=== PATIENT | female | born 1950 | race Caucasian/White ===

== ENCOUNTER 2017-01-22 12:15 | Emergency (ER) | payer OTHER ==
[~2017-01-22] VITALS: Ht 157.5 cm; Wt 71.4 kg
[~2017-01-22 12:15] MED LIST: SYMBICORT1 AE1 INH
[2017-01-22 13:14] LABS: CALCIUM 8.9 mg/dL (8.5-10.1); CHLORIDE SERUM 104 mmol/L (98-107); CREATININE SERUM 0.9 mg/dL (0.6-1.0); GFR1 > 60 mL/min; GLUCOSE SERUM 74 mg/dL (74-106); SODIUM SERUM 142 mmol/L (136-145)
[2017-01-22 13:18] LABS: ALKALINE PHOSPHATASE 95 U/L (46-116); ALT/SGPT 18 U/L (14-59); AST/SGOT 15 U/L (15-37); BILIRUBIN TOTAL 0.4 mg/dL (0.20-1.00); TOTAL PROTEIN, SERUM 7.8 g/dL (6.4-8.2)
[2017-01-22 14:04] LABS: BASOPHIL % 0.5 % (0-2); PLATELET COUNT 288 x10^3mcL (130-400)
[2017-01-22 14:06] LABS: RED CELL DISTRIBUTION WIDTH 14.6 % (11.5-14.5)
[2017-01-22 14:43] VITALS: BP 138/86
== END 2017-01-22 14:43 | disposition home or self-care (01) ==
LOC: ED 12:15
PROVIDERS: Emergency Medicine
DX: J44.1 Chronic obstructive pulmonary disease with (acute) exacerbation (principal)
CPT/HCPCS: 36415; J7512; J7613; J7644; Q0092

== ENCOUNTER 2017-04-21 06:38 | Emergency (ER) | payer OTHER ==
[~2017-04-21] VITALS: Ht 160 cm; Wt 69.8 kg
[2017-04-21 06:43] VITALS: BP 122/82; Ht 160 cm; Wt 69.8 kg
== END 2017-04-21 09:29 | disposition left against medical advice (07) ==
LOC: ED 06:38
DX: Z53.21 Procedure and treatment not carried out due to patient leaving prior to being seen by health care provider (principal)

== ENCOUNTER 2017-05-02 01:32 | Observation (INO) | payer OTHER ==
[~2017-05-02] VITALS: Ht 157.5 cm; Wt 72.1 kg
[2017-05-02 04:15] LABS: CARBON DIOXIDE 26.3 mmol/L (21-32); CHLORIDE SERUM 107 mmol/L (98-107); CREATININE SERUM 0.9 mg/dL (0.6-1.0); GFR1 > 60 mL/min; GLUCOSE SERUM 125 mg/dL (74-106); POTASSIUM SERUM 4.7 mmol/L (3.5-5.1); SODIUM SERUM 143 mmol/L (136-145)
[2017-05-02 04:18] LABS: BASOPHIL % 1.7 % (0-2); PLATELET COUNT 345 x10^3mcL (130-400); RED CELL DISTRIBUTION WIDTH 13.6 % (11.5-14.5)
[2017-05-02 04:30] LABS: ALBUMIN 3.7 g/dL (3.4-5.0); ALKALINE PHOSPHATASE 67 U/L (46-116); ALT/SGPT 16 U/L (14-59); AST/SGOT 12 U/L (15-37); BILIRUBIN TOTAL 0.28 mg/dL (0.20-1.00); TOTAL PROTEIN, SERUM 6.6 g/dL (6.4-8.2)
[2017-05-02 06:04] LABS: FREE T4 0.98 ng/dL (0.76-1.46); FREE THYROXINE INDEX 2.7 ug/dL (1.4-4.5); T4(THYROXINE) 7.6 ug/dL (4.7-13.3)
[2017-05-02 06:07] LABS: CHOLESTEROL/HDL RATIO 3.2; MAGNESIUM 2.2 mg/dL (1.8-2.4); PHOSPHOROUS 4.1 mg/dL (2.5-4.9)
[2017-05-02 08:42] VITALS: BP 153/81
[2017-05-02 10:10] VITALS: BP 145/85
[2017-05-02 10:52] VITALS: BP 145/85
[2017-05-02 12:40] VITALS: BP 122/73
[2017-05-02 13:33] LABS: T3 TOTAL 1.14 ng/mL
[2017-05-02 13:36] LABS: UA SPECIFIC GRAVITY 1.015 (1.005-1.035); microscopic required? YES; urine erythrocyte TRACE (NEGATIVE)
[2017-05-02 17:40] VITALS: BP 147/83
[2017-05-02 22:38] VITALS: BP 142/85
[2017-05-03 06:12] LABS: BASOPHIL % 0.1 % (0-2); PLATELET COUNT 317 x10^3mcL (130-400)
[2017-05-03 06:31] LABS: CALCIUM 8.5 mg/dL (8.5-10.1); CARBON DIOXIDE 24.7 mmol/L (21-32); CHLORIDE SERUM 108 mmol/L (98-107); CREATININE SERUM 0.8 mg/dL (0.6-1.0); GFR1 > 60 mL/min; GLUCOSE SERUM 159 mg/dL (74-106); PHOSPHOROUS 3.7 mg/dL (2.5-4.9); POTASSIUM SERUM 4.2 mmol/L (3.5-5.1); SODIUM SERUM 144 mmol/L (136-145)
[2017-05-03 06:32] LABS: RED CELL DISTRIBUTION WIDTH 14.6 % (11.5-14.5)
[2017-05-03 07:17] VITALS: BP 137/87
[2017-05-03 08:00] VITALS: BP 126/67
[2017-05-03] MEDS ORDERED: LEVAQUIN750 MG PO (12:02)
[2017-05-03] MEDS ORDERED: VENTOLIN H0.09 MG/A1 INH (12:03)
[2017-05-03] MEDS ORDERED: NIC14 TD (12:04)
[2017-05-03] MEDS ORDERED: LAC PO (12:06)
[2017-05-03] MEDS ORDERED: PREDNISONE10 MG PO (12:11)
[2017-05-03 13:34] VITALS: BP 126/67
== END 2017-05-03 14:51 | disposition home or self-care (01) | DRG 191 ==
LOC: ED 01:32 → DU 04:31
PROVIDERS: Emergency Medicine; Family Medicine
DX: J44.1 Chronic obstructive pulmonary disease with (acute) exacerbation (principal); R65.10 Systemic inflammatory response syndrome (SIRS) of non-infectious origin without acute organ dysfunction; R31.29 Other microscopic hematuria; F17.210 Nicotine dependence, cigarettes, uncomplicated; E66.3 Overweight; Z68.29 Body mass index [BMI] 29.0-29.9, adult
CPT/HCPCS: 83880; 84439; 87804; G0378; J1956; J2920; J2930; J7030; J7613; J7620; J7626

== ENCOUNTER 2017-07-01 05:53 | Inpatient (IN) | payer OTHER ==
[~2017-07-01] VITALS: Ht 157.5 cm; Wt 71.2 kg
[~2017-07-01 05:53] MED LIST changes: +LAC PO; +LEVAQUIN750 MG PO; +NIC14 TD; +PREDNISONE10 MG PO; +VENTOLIN H0.09 MG/A1 INH
[2017-07-01 05:59] VITALS: Ht 157.5 cm; Wt 71.2 kg
[2017-07-01 06:47] LABS: BASOPHIL % 0.5 % (0-2); PLATELET COUNT 270 x10^3mcL (130-400)
[2017-07-01 06:54] LABS: RED CELL DISTRIBUTION WIDTH 14.6 % (11.5-14.5)
[2017-07-01 07:05] LABS: CALCIUM 8.4 mg/dL (8.5-10.1); CARBON DIOXIDE 25.9 mmol/L (21-32); POTASSIUM SERUM 3.8 mmol/L (3.5-5.1)
[2017-07-01 07:10] LABS: TOTAL PROTEIN, SERUM 6.4 g/dL (6.4-8.2)
[2017-07-01 07:11] LABS: ALBUMIN 3.3 g/dL (3.4-5.0)
[2017-07-01 07:22] LABS: BILIRUBIN TOTAL 0.29 mg/dL (0.20-1.00)
[2017-07-01 09:13] VITALS: BP 134/74
[2017-07-01 09:35] VITALS: BP 139/76
[2017-07-01 11:02] LABS: MAGNESIUM 2.6 mg/dL (1.8-2.4)
[2017-07-01 11:04] LABS: CHOLESTEROL/HDL RATIO 2.7
[2017-07-01 11:09] LABS: FREE T4 1.02 ng/dL (0.76-1.46); FREE THYROXINE INDEX 2.4 ug/dL (1.4-4.5); T3 TOTAL 0.96 ng/mL; T4(THYROXINE) 7.3 ug/dL (4.7-13.3)
[2017-07-01 13:38] VITALS: BP 114/70
[2017-07-01 17:21] VITALS: BP 128/72
[2017-07-01 17:47] LABS: microscopic required? YES; urine erythrocyte 1+ (NEGATIVE)
[2017-07-01 18:02] LABS: AMPHETAMINE QUAL UR NONE DETECTED (NEG <=1000)
[2017-07-01 21:46] VITALS: BP 132/79
[2017-07-02 06:03] VITALS: BP 167/87
[2017-07-02 06:46] LABS: PLATELET COUNT 292 x10^3mcL (130-400)
[2017-07-02 06:58] LABS: CALCIUM 8.8 mg/dL (8.5-10.1); CARBON DIOXIDE 22.3 mmol/L (21-32); CHLORIDE SERUM 108 mmol/L (98-107); CREATININE SERUM 0.9 mg/dL (0.6-1.0); GFR1 > 60 mL/min; GLUCOSE SERUM 148 mg/dL (74-106); MAGNESIUM 2.1 mg/dL (1.8-2.4); PHOSPHOROUS 3.7 mg/dL (2.5-4.9); POTASSIUM SERUM 4.4 mmol/L (3.5-5.1); SODIUM SERUM 142 mmol/L (136-145)
[2017-07-02 09:04] VITALS: BP 122/68
[2017-07-02 10:26] LABS: BAND NEUTROPHIL 3 % (0-10); BASOPHIL 0 % (0-2); MONOCYTE 2 % (0-7); SEGMENTED NEUTROPHILS 90 % (37-75)
== END 2017-07-02 12:39 | disposition left against medical advice (07) | DRG 189 ==
LOC: ED 05:53 → DU 08:10
PROVIDERS: Emergency Medicine; Family Medicine
DX: J96.21 Acute and chronic respiratory failure with hypoxia (principal); J44.1 Chronic obstructive pulmonary disease with (acute) exacerbation; E44.1 Mild protein-calorie malnutrition; F17.219 Nicotine dependence, cigarettes, with unspecified nicotine-induced disorders; E83.41 Hypermagnesemia; E83.51 Hypocalcemia; E78.5 Hyperlipidemia, unspecified; F12.11 Cannabis abuse, in remission; Z68.28 Body mass index [BMI] 28.0-28.9, adult; Z53.29 Procedure and treatment not carried out because of patient's decision for other reasons; Z91.19 Patient's noncompliance with other medical treatment and regimen; Z71.6 Tobacco abuse counseling; Z81.8 Family history of other mental and behavioral disorders; Z81.1 Family history of alcohol abuse and dependence; Z79.52 Long term (current) use of systemic steroids
CPT/HCPCS: 36600; 83880; 84439; J0456; J2930; J3475; J3490; J7030; J7613; J7620; J7626; J7644

== ENCOUNTER 2017-08-07 17:26 | Emergency (ER) | payer OTHER ==
[~2017-08-07] VITALS: Ht 157.5 cm; Wt 71.4 kg
[2017-08-07 17:29] VITALS: Ht 157.5 cm; Wt 71.4 kg
[2017-08-07 18:15] LABS: PLATELET COUNT 266 x10^3mcL (130-400)
[2017-08-07 18:19] LABS: BASOPHIL % 2.3 % (0-2); RED CELL DISTRIBUTION WIDTH 14.6 % (11.5-14.5)
[2017-08-07 18:21] LABS: CALCIUM 8.5 mg/dL (8.5-10.1); CARBON DIOXIDE 27.4 mmol/L (21-32); POTASSIUM SERUM 3.9 mmol/L (3.5-5.1)
[2017-08-07 18:26] LABS: ALBUMIN 3.5 g/dL (3.4-5.0); BILIRUBIN TOTAL 0.28 mg/dL (0.20-1.00); TOTAL PROTEIN, SERUM 6.8 g/dL (6.4-8.2)
[2017-08-07 19:33] VITALS: BP 123/82
== END 2017-08-07 19:33 | disposition home or self-care (01) ==
LOC: ED 17:26
PROVIDERS: Emergency Medicine
DX: J44.1 Chronic obstructive pulmonary disease with (acute) exacerbation (principal); F17.210 Nicotine dependence, cigarettes, uncomplicated; Z71.6 Tobacco abuse counseling
CPT/HCPCS: 83880; 99406; J2930; J3475; J7030; J7613; J7644; Q0092

== ENCOUNTER 2018-01-09 05:20 | Inpatient (IN) | payer OTHER ==
[~2018-01-09] VITALS: Ht 160 cm; Wt 71.2 kg
[2018-01-09 05:30] VITALS: Ht 160 cm; Wt 71.2 kg
[2018-01-09 06:28] LABS: CALCIUM 8.4 mg/dL (8.5-10.1); CHLORIDE SERUM 107 mmol/L (98-107); CREATININE SERUM 0.9 mg/dL (0.6-1.0); GFR1 > 60 mL/min; GLUCOSE SERUM 94 mg/dL (74-106); POTASSIUM SERUM 3.5 mmol/L (3.5-5.1); SODIUM SERUM 143 mmol/L (136-145)
[2018-01-09 06:37] LABS: BASOPHIL % 0.5 % (0-2); PLATELET COUNT 249 x10^3mcL (130-400)
[2018-01-09 06:45] LABS: ALKALINE PHOSPHATASE 71 U/L (46-116); ALT/SGPT 17 U/L (14-59); AST/SGOT 14 U/L (15-37); BILIRUBIN TOTAL 0.2 mg/dL (0.20-1.00); TOTAL PROTEIN, SERUM 6.8 g/dL (6.4-8.2)
[2018-01-09 06:46] LABS: ALBUMIN 3.3 g/dL (3.4-5.0)
[2018-01-09 09:05] LABS: CHOLESTEROL/HDL RATIO 2.9
[2018-01-09 09:07] LABS: FREE T4 0.86 ng/dL (0.76-1.46); FREE THYROXINE INDEX 2.3 ug/dL (1.4-4.5); T4(THYROXINE) 6.4 ug/dL (4.7-13.3)
[2018-01-09 09:08] LABS: T3 TOTAL 0.89 ng/mL
[2018-01-09 09:45] LABS: microscopic required? YES; urine erythrocyte 1+ (NEGATIVE)
[2018-01-09 10:56] VITALS: BP 119/77
[2018-01-09 14:30] VITALS: BP 136/88
[2018-01-09 18:03] VITALS: BP 119/71
[2018-01-09 20:43] VITALS: BP 138/78
[2018-01-10 05:53] VITALS: BP 159/90
[2018-01-10 09:13] VITALS: BP 126/68
[2018-01-10 10:28] VITALS: BP 126/68
== END 2018-01-10 10:57 | disposition home or self-care (01) | DRG 202 ==
LOC: ED 05:20 → DU 06:59 → MU 06:59 → DU 08:55 → MU 08:55 → DU 09:30
PROVIDERS: Emergency Medicine; Internal Medicine
DX: J20.9 Acute bronchitis, unspecified (principal); J44.0 Chronic obstructive pulmonary disease with (acute) lower respiratory infection; J44.1 Chronic obstructive pulmonary disease with (acute) exacerbation; F17.210 Nicotine dependence, cigarettes, uncomplicated; Z68.28 Body mass index [BMI] 28.0-28.9, adult
CPT/HCPCS: 84439; 94150; J0456; J1956; J2920; J2930; J7030; J7620; J7626; Q0092

== ENCOUNTER 2018-07-22 06:02 | Emergency (ER) | payer OTHER ==
[~2018-07-22] VITALS: Ht 157.5 cm; Wt 64.9 kg
[2018-07-22 06:08] VITALS: Ht 157.5 cm; Wt 64.9 kg
[2018-07-22 07:14] VITALS: BP 139/88
== END 2018-07-22 07:14 | disposition home or self-care (01) ==
LOC: ED 06:02
DX: J44.1 Chronic obstructive pulmonary disease with (acute) exacerbation (principal); F17.210 Nicotine dependence, cigarettes, uncomplicated
CPT/HCPCS: 99406; J7512; J7613; J7644

== ENCOUNTER 2018-08-19 06:55 | Inpatient (IN) | payer OTHER ==
[~2018-08-19] VITALS: Ht 157.5 cm; Wt 62.1 kg
--- NOTE | 2018-08-19 07:18 | NUR ---
PT BROUGHT TO ED BY FROM HOME C/O SOB X1 WEEK WITH CONGESTED COUGH. PER PT HX OF ASTHMA AND WAS SEEN BY PRIMARY MD LAST SUNDAY (08/13/18) AND WAS GIVEN RX FOR LEVAQUIN AND DUONEB RX, PT REPORTS SHE COMPLETED CYCLE OF LEVAQUIN TODAY AND SYMPTOMS HAVE NOT RESOLVED AND ARE WORSENING WITH SOB ON EXERTION. PT ALSO REPORTS SHE IS SCHEDULED TO SEE A BUSINESS SERVICES ASSISTANT AT THE END OF AUGUST. PER PT CONGESTED COUGH WITH WHITE PHLEGM. PT AA/O X4, RESPS EVEN AND SLIGHTLY LABORED, LUNG SOUNDS CLEAR TO ALL MOSS, DIMINISHED AT BASES, SKIN WARM/DRY TO TOUCH. PT DENIES ANY FEVER, STATES LAST HOSPITALIZED FOR ASTHMA LAST YEAR.
[2018-08-19] MEDS ORDERED: FLONS (07:25)
[2018-08-19] MEDS ORDERED: SINGULAIR10 MG PO (07:25)
[2018-08-19] MEDS ORDERED: VENTOLIN H0.09 MG/A1 INH (07:25)
--- NOTE | 2018-08-19 07:29 | NUR ---
DR. MCGRATH AT BEDSIDE FOR MSE.
--- NOTE | 2018-08-19 07:46 | NUR ---
RT AT BEDSIDE FOR ABG DRAW.
--- NOTE | 2018-08-19 07:56 | NUR ---
BREATHING TX IN PROGRESS. PT REPORTS SHE HAS BEEN SMOKING FOR APPROX 50 YEARS, "DOWN TO 3 CIGARETTES A DAY."
[2018-08-19 08:10] LABS: CARBON DIOXIDE 26.5 mmol/L (21-32); CREATININE SERUM 1.2 mg/dL (0.6-1.0); POTASSIUM SERUM 4.3 mmol/L (3.5-5.1)
[2018-08-19 08:14] LABS: ALBUMIN 3.5 g/dL (3.4-5.0); BILIRUBIN TOTAL 0.8 mg/dL (0.20-1.00); PHOSPHOROUS 3.7 mg/dL (2.5-4.9); TOTAL PROTEIN, SERUM 7.8 g/dL (6.4-8.2); URIC ACID 5.8 mg/dL (2.6-6.0)
[2018-08-19 08:26] LABS: BASOPHIL % 0.3 % (0-2); PLATELET COUNT 281 x10^3mcL (130-400); RED CELL DISTRIBUTION WIDTH 14.1 % (11.5-14.5)
--- NOTE | 2018-08-19 10:04 | NUR ---
PT TAKEN TO CT VIA [facility]OC[facility]O BY JUNE, PT IN NO DISTRESS.
--- NOTE | 2018-08-19 10:19 | NUR ---
PT BACK FROM CT WITHOUT INCIDENCE.
--- NOTE | 2018-08-19 10:51 | NUR ---
PT SITTING UP IN ED GURNEY IN POSITION OF COMFORT, A/O X4, WATCHING TV, RESPS EVEN AND UNLABORED, NO S/S OF DISTRESS NOTED. COMFORT MEASURES IN PLACE, CALL LIGHT WITHIN REACH.
--- NOTE | 2018-08-19 11:38 | NUR ---
PT MEDICATED WITH ATIVAN 0.5MG SLOW IVP PER MD ORDERS. PT IN NO DISTRESS. AT BEDSIDE.
--- NOTE | 2018-08-19 12:46 | NUR ---
PT SLEEPING IN ED GURNEY IN POSITION OF COMFORT, SLEEPING, EASILY AROUSABLE, RESPS EVEN AND UNLABORED, NO S/S OF DISTRESS NOTED.
--- NOTE | 2018-08-19 13:02 | NUR ---
PT AMBULATORY TO AND FROM BATHROOM WITH STEADY GAIT, BACK IN ED GURNEY IN POSITION OF COMFORT, A/O X4, RESPS EVEN AND UNLABORED, NO S/S OF DISTRESS NOTED.
--- NOTE | 2018-08-19 13:10 | NUR ---
REPORT CALLED TO HELDER MORELAND. PT TO ADMITTED TO TELE. PT IN NO DISTRESS.
--- NOTE | 2018-08-19 13:31 | NUR ---
RECEIVED PT FROM ED VIA E[facility], CAME IN DUE TO SOB. AAOX4. DENIES HEADACHE/DIZZINESS. ABLE TO FOLLOW COMMANDS. NO SOB NOTED, EVEN AND UNLABORED BREATHING. LUNG SOUNDS CTA. W/ NON-PRODUCTIVE COUGH. DENIES CHEST PAIN/PRESSURE. DENIES ABDOMINAL DISCOMFORT. BOWEL SOUNDS ACTIVE. VOIDS. IV SITE ON THE LAC GAUGE 20 IS PATENT AND INTACT. SIDE RAILS UPX2. CALL LIGHT ON REACH. AT BEDSIDE. ENDORSED TO PRIMARY NURSE HELDER FOR CONTINUITY OF CARE
[2018-08-19 13:38] VITALS: BP 107/71
[2018-08-19 13:43] VITALS: Ht 157.5 cm; Wt 62.1 kg
[2018-08-19 14:34] VITALS: BP 107/71
--- NOTE | 2018-08-19 15:11 | NUR ---
PT SITTING UP IN BED RESTING. DENIES ANY SOB OR DISCOMFORT AT THIS TIME. CURRENTLY REC LEVAQUIN IV TO LAC, NO REDNESS OR SWELLING NOTED. CALL LIGHT IN REACH BED IN LOW POSITION. WILL CONTINUE TO MONITOR.
[2018-08-19 18:00] VITALS: BP 108/75
--- NOTE | 2018-08-19 18:22 | NUR ---
NO ACUTE CHANGES AT THIS TIME. NO ACUTE RESP DISTRESS OR SOB NOTED. TOLERATED 100% OF DINNER. BY HER SIDE. IV TO THE LAC INTACT AND PATENT, NO REDNESS OR SWELLING NOTED/ HEPLOCKED. CALL LIGHT IN REACH. BED IN LOW POSITION. WILL ENDORSE TO INCOMING RN.
--- NOTE | 2018-08-19 20:24 | NUR ---
PT'S IN BED AAOX4 NO RESP DISTRESS NOTED , LUNG SOUNDS DIMINISHED ON 2L N/C SAT 96% , ABD SOFT BS ACTIVE X4, HL INTACT FLUSHING WELL , CALL LIGHT WITHIN PT'S REACH , WILL CON'T TO MONITOR PT CLOSELY.
[2018-08-19 21:01] VITALS: BP 115/74
--- NOTE | 2018-08-20 01:21 | NUR ---
PT;S IN BED WITH EYES CLOSED , PIV INFUSING AT 10ML/HR .
--- NOTE | 2018-08-20 05:01 | NUR ---
I HAVE REVIEWED THE DATA COLLECTION BY B[employer] S[employer]LL SAW OPERATOR (NAME):JULIANNE WEBER ENTERED ON (DATE/TIME): I CONCUR WITH THE DATA AND ANY EXCEPTIONS OR COMMENTS ARE LISTED BELOW:
[2018-08-20 05:57] VITALS: BP 113/77
--- NOTE | 2018-08-20 06:23 | NUR ---
PT'S IN BED AWAKE NO RESP DISTRESS NOTED , HL INTACT FLUSHING WELL .
[2018-08-20 07:11] LABS: BASOPHIL % 0.1 % (0-2); PLATELET COUNT 278 x10^3mcL (130-400); RED CELL DISTRIBUTION WIDTH 13.9 % (11.5-14.5)
[2018-08-20 07:20] LABS: CALCIUM 9.2 mg/dL (8.5-10.1); CARBON DIOXIDE 26.8 mmol/L (21-32); POTASSIUM SERUM 4.9 mmol/L (3.5-5.1)
--- NOTE | 2018-08-20 07:30 | NUR ---
PT ENDORSE TO ME THIS MORNING. SITTING UP IN BED HAVING HER COFFEE. AA/O X4 BREATHING EVEN AND UNLABORED ON RA. NO ACUTE RESP DISTRESS NOTED. MEDSURG. DENIES ANY CP OR PRESSURE. BOWEL SOUNDS ACTIVE IN ALL FOUR QUADS. VOIDS FREELY. AMB. SKIN INTACT. IV TO THE LAC INTACT AND PATENT/ HEPLOCKED. NO REDNESS OR SWELLING NOTED. CALL LIGHT IN REACH. BED IN LOW POSITION. WILL CONTINUE PLAN OF CARE.
[2018-08-20] MEDS ORDERED: LEVOFLOXACIN500 M1 PO (08:22)
[2018-08-20] MEDS ORDERED: PREDNISONE20 MG PO (08:22)
[2018-08-20 08:41] VITALS: BP 108/62
[2018-08-20 09:52] VITALS: BP 108/62
--- NOTE | 2018-08-20 11:24 | NUR ---
EXPLAINED DISCHARGE INSTRUCTIONS TO PATIENT, NEW AND CONTINUED MEDS. PT STATED SHE HAS A FOLLOW UP APPOINTMENT WITH HER PRIMARY DOCTOR ON AUGUST 30 AND WILL BE CALLING TO SET UP AN APPOINTMENT WITH LUNG SPECIALIST. PT AGREED AND SIGNED ALL DOCUMENTS. REMOVED IV TO THE LAC, CATHETHER TIP INTACT. NO REDNESS OR SWELLING NOTED. PT WILL CALL NURSING STATION ONCE SHES READY TO LEAVE.
--- NOTE | 2018-08-20 11:57 | NUR ---
STUDENT NURSE WALKED PT DOWN TO DISCHARGE LOBBY. PT BREATHING EVEN AND UNLABORED ON RA, NO ACUTE RESP DISTRESS OR SOB NOTED. DENIES ANY CP OR PRESSURE. BY HER SIDE. PT IS CLEAR ON ALL D/C INSTRUCTIONS AND THE IMPORTANCE TO NOT SMOKING ANYMORE. PT DISCHARGED.
== END 2018-08-20 11:44 | disposition home or self-care (01) | DRG 202 ==
LOC: ED 06:55 → MU 12:56 → DU 12:56 → MU 13:31
PROVIDERS: Emergency Medicine; ADMIT Internal Medicine Pulmonary Disease
DX: J20.9 Acute bronchitis, unspecified (principal); J44.1 Chronic obstructive pulmonary disease with (acute) exacerbation; J44.0 Chronic obstructive pulmonary disease with (acute) lower respiratory infection; F17.210 Nicotine dependence, cigarettes, uncomplicated
CPT/HCPCS: 36600; 85378; J0132; J1650; J1956; J2060; J2920; J7512; J7620; J7626; Q0092; Q9967

== ENCOUNTER 2019-04-22 05:14 | Observation (INO) | payer OTHER ==
[~2019-04-22] VITALS: Ht 157.5 cm; Wt 61.2 kg
[~2019-04-22 05:14] MED LIST changes: +FLONS; +LEVOFLOXACIN500 M1 PO; +PREDNISONE20 MG PO; +SINGULAIR10 MG PO
[2019-04-22 05:18] VITALS: Ht 157.5 cm; Wt 61.2 kg
[2019-04-22 06:05] LABS: BASOPHIL % 0.1 % (0-2); PLATELET COUNT 182 x10^3mcL (130-400); RED CELL DISTRIBUTION WIDTH 14.3 % (11.5-14.5)
[2019-04-22 06:06] LABS: CALCIUM 8.6 mg/dL (8.5-10.1); CARBON DIOXIDE 27.5 mmol/L (21-32); POTASSIUM SERUM 3.8 mmol/L (3.5-5.1)
[2019-04-22 06:11] LABS: ALBUMIN 3.5 g/dL (3.4-5.0); BILIRUBIN TOTAL 0.4 mg/dL (0.20-1.00); TOTAL PROTEIN, SERUM 7.1 g/dL (6.4-8.2)
[2019-04-22 14:10] VITALS: BP 132/79
[2019-04-22 14:11] VITALS: BP 150/89
[2019-04-22 16:42] VITALS: BP 129/76
[2019-04-22 19:54] VITALS: BP 151/85
[2019-04-23 05:09] VITALS: BP 124/76
[2019-04-23 06:37] LABS: BASOPHIL % 0.1 % (0-2); PLATELET COUNT 178 x10^3mcL (130-400); RED CELL DISTRIBUTION WIDTH 14.1 % (11.5-14.5)
[2019-04-23 07:03] LABS: ALKALINE PHOSPHATASE 69 U/L (46-116); ALT/SGPT 21 U/L (14-59); AST/SGOT 19 U/L (15-37); BILIRUBIN TOTAL 0.12 mg/dL (0.20-1.00); CALCIUM 8.5 mg/dL (8.5-10.1); CHLORIDE SERUM 105 mmol/L (98-107); CREATININE SERUM 0.7 mg/dL (0.6-1.0); GFR1 > 60 mL/min; GLUCOSE SERUM 147 mg/dL (74-106); MAGNESIUM 2.1 mg/dL (1.8-2.4); POTASSIUM SERUM 4.1 mmol/L (3.5-5.1); SODIUM SERUM 141 mmol/L (136-145); TOTAL PROTEIN, SERUM 6.8 g/dL (6.4-8.2)
[2019-04-23 07:11] LABS: ALBUMIN 3.2 g/dL (3.4-5.0)
[2019-04-23 07:54] VITALS: BP 133/76
[2019-04-23 11:12] VITALS: BP 113/76
[2019-04-23 12:08] VITALS: BP 138/76
== END 2019-04-23 12:42 | disposition home or self-care (01) ==
LOC: ED 05:14 → DU 09:47
PROVIDERS: ADMIT Internal Medicine Pulmonary Disease
DX: J44.1 Chronic obstructive pulmonary disease with (acute) exacerbation (principal); J18.9 Pneumonia, unspecified organism; E03.9 Hypothyroidism, unspecified; I10 Essential (primary) hypertension; J96.11 Chronic respiratory failure with hypoxia; F17.210 Nicotine dependence, cigarettes, uncomplicated
CPT/HCPCS: 36600; 83880; 87804; G0378; J0456; J0696; J1644; J1956; J2920; J2930; J7050; J7620; J7626; Q0092

== ENCOUNTER 2019-04-25 01:28 | Inpatient (IN) | payer OTHER ==
[~2019-04-25] VITALS: Ht 157.5 cm; Wt 64.5 kg
[2019-04-25 02:17] LABS: BASOPHIL % 0.1 % (0-2); PLATELET COUNT 189 x10^3mcL (130-400); RED CELL DISTRIBUTION WIDTH 14.3 % (11.5-14.5)
[2019-04-25 02:23] LABS: CALCIUM 8.3 mg/dL (8.5-10.1); CARBON DIOXIDE 27.9 mmol/L (21-32); CHLORIDE SERUM 105 mmol/L (98-107); CREATININE SERUM 0.9 mg/dL (0.6-1.0); GFR1 > 60 mL/min; GLUCOSE SERUM 90 mg/dL (74-106); POTASSIUM SERUM 3.2 mmol/L (3.5-5.1); SODIUM SERUM 141 mmol/L (136-145)
[2019-04-25 02:34] LABS: ALBUMIN 3.4 g/dL (3.4-5.0); ALKALINE PHOSPHATASE 69 U/L (46-116); ALT/SGPT 27 U/L (14-59); AST/SGOT 23 U/L (15-37); BILIRUBIN TOTAL 0.19 mg/dL (0.20-1.00); TOTAL PROTEIN, SERUM 6.8 g/dL (6.4-8.2)
[2019-04-25 02:38] LABS: T3 TOTAL 0.83 ng/mL
[2019-04-25 02:42] LABS: CK-MB 2.8 ng/mL (0-3.6); FREE T4 1.01 ng/dL (0.76-1.46)
[2019-04-25 02:58] LABS: microscopic required? NO
[2019-04-25 03:11] LABS: urine erythrocyte NEGATIVE (NEGATIVE)
[2019-04-25 03:20] LABS: ERYTHROCYTE SED RATE 14 mm/hr (0-30)
[2019-04-25 04:43] VITALS: BP 122/68
[2019-04-25 05:17] LABS: BASOPHIL % 0 % (0-2); PLATELET COUNT 176 x10^3mcL (130-400); RED CELL DISTRIBUTION WIDTH 14.1 % (11.5-14.5)
[2019-04-25 05:40] VITALS: BP 129/78
[2019-04-25 05:43] LABS: ALKALINE PHOSPHATASE 63 U/L (46-116); ALT/SGPT 23 U/L (14-59); AST/SGOT 19 U/L (15-37); BILIRUBIN TOTAL 0.15 mg/dL (0.20-1.00); CALCIUM 7.8 mg/dL (8.5-10.1); CARBON DIOXIDE 28.5 mmol/L (21-32); CHLORIDE SERUM 106 mmol/L (98-107); CREATININE SERUM 0.8 mg/dL (0.6-1.0); GFR1 > 60 mL/min; GLUCOSE SERUM 183 mg/dL (74-106); MAGNESIUM 2.4 mg/dL (1.8-2.4); POTASSIUM SERUM 3.3 mmol/L (3.5-5.1); SODIUM SERUM 140 mmol/L (136-145); TOTAL PROTEIN, SERUM 6.2 g/dL (6.4-8.2)
[2019-04-25 05:46] LABS: ALBUMIN 3.1 g/dL (3.4-5.0)
[2019-04-25 07:26] VITALS: BP 140/68
[2019-04-25 11:52] VITALS: BP 145/83
[2019-04-25 16:15] VITALS: BP 149/90
[2019-04-25 17:25] VITALS: Ht 157.5 cm; Wt 64.5 kg
[2019-04-25 20:14] VITALS: BP 139/87
[2019-04-26 05:50] VITALS: BP 130/85
[2019-04-26 09:26] VITALS: BP 138/77
[2019-04-26] MEDS ORDERED: SINGULAIR10 MG PO (09:57)
[2019-04-26 12:29] VITALS: BP 154/80
[2019-04-26 17:25] VITALS: BP 142/88
[2019-04-26 20:45] VITALS: BP 154/91
[2019-04-27 05:20] VITALS: BP 136/93
[2019-04-27 07:59] VITALS: BP 151/77
[2019-04-27] MEDS ORDERED: TAM75 PO (08:04)
[2019-04-27] MEDS ORDERED: PREDNISONE10 MG PO (08:05)
[2019-04-27 08:14] VITALS: BP 151/77
== END 2019-04-27 09:42 | disposition home or self-care (01) | DRG 194 ==
LOC: ED 01:28 → DU 04:07 → MU 04:07 → DU 05:20 → MU 05:22
PROVIDERS: Specialist; ADMIT Internal Medicine Pulmonary Disease
DX: J10.1 Influenza due to other identified influenza virus with other respiratory manifestations (principal); J44.1 Chronic obstructive pulmonary disease with (acute) exacerbation; J44.0 Chronic obstructive pulmonary disease with (acute) lower respiratory infection; F17.210 Nicotine dependence, cigarettes, uncomplicated; Z68.27 Body mass index [BMI] 27.0-27.9, adult; Z79.52 Long term (current) use of systemic steroids
CPT/HCPCS: 36600; 83880; 84439; 87804; G0378; J0171; J1644; J1956; J2920; J2930; J3105; J3475; J7030; J7613; J7644; Q0092